=== PATIENT | female | born 2000 | race American Indian/Alaskan Native ===

== ENCOUNTER 2020-05-27 15:40 | Outpatient (CLI) | payer MEDICAID ==
[2020-05-27 17:01] VITALS: BP 129/84
[2020-05-27 20:03] LABS: Basophils % (Auto) 0.2 % (0.0-1.8); Eosinophils % (Auto) 0.1 % (0.0-4.3); Hematocrit 39.4 % (30.3-42.9); Lymphocytes # (Auto) 1.9 K/mm3 (1.2-5.4); Mean Corpuscular HGB Conc 33 % (30-34); Mean Corpuscular Volume 83 fl (79-97); Monocytes # (Auto) 0.5 K/mm3 (0.0-0.8); Monocytes % (Auto) 5.5 % (0.0-7.3); Platelet Count 120 K/mm3 (140-440); Red Blood Count 4.73 M/mm3 (3.65-5.03); Red Cell Distribution Width 13.1 % (13.2-15.2)
[2020-05-27 20:18] LABS: Alanine Aminotransferase 15 units/L (7-56); Albumin 3.5 g/dL (3.9-5); Blood Urea Nitrogen 8 mg/dL (7-17); Calcium 9.5 mg/dL (8.4-10.2); Hemolysis Index 0; Uric Acid 4.8 mg/dL (3.5-7.6)
[2020-05-27 20:20] LABS: BUN/Creatinine Ratio 16
[2020-05-27 20:20] LABS: Bacteria,Urine 1+ /HPF (Negative); Bilirubin,Urine NEG (Negative); Blood,Urine NEG (Negative); Color,Urine Yellow (Yellow); Mucus,Urine 1+ /HPF; Protein,Urine <15 mg/dL mg/dL (Negative); Urobilinogen,Urine < 2.0 mg/dL (<2.0)
[2020-05-27 20:23] LABS: Amphetamine Screen,Urine PRESUMPTIVE NEGATIVE; Benzodiazepines Screen,Urine PRESUMPTIVE NEGATIVE; Cannabinoid Screen,Urine PRESUMPTIVE NEGATIVE; Cocaine Screen,Urine PRESUMPTIVE NEGATIVE; Methadone Screen,Urine PRESUMPTIVE NEGATIVE; Opiate Screen,Urine PRESUMPTIVE NEGATIVE
[2020-05-27] MEDS ORDERED: HYDROcodone/ACETAMINOPHEN 10-325MG TAB PO PRN (21:49)
[2020-05-27 21:55] LABS: Creatinine,Urine 209.4 mg/dL (0.1-20.0); Protein/Creatinine Ratio,Urine 0.12
--- NOTE | 2020-05-30 11:29 | Ultrasound Report ---
Limited OB Ultrasound Biophysical profile HISTORY: BPP. TECHNIQUE: Grayscale and color imaging performed. COMPARISON: None FINDINGS: There is a single viable intrauterine gestation with cephalic presentation and heart rate o f 150 bpm. JESI was measured at 8 cm. Placenta is anterior. On biophysical profile, the fetus received a score of 2 out of 2 for breathing, movement, posture/ton e, and JESI. Total score was 8 out of 8. IMPRESSION: 1. Single viable intrauterine gestation as above. 2. Normal biophysical profile. Signer Name: Kasi Turcios MD Signed: 05/27/2020 8:09 PM Workstation Name: [id number]
== END 2020-05-27 21:45 | disposition left against medical advice (07) ==
LOC: EDSTATUS 18:14 → TRG 18:25 → APU 18:26 → TRG 21:45
PROVIDERS: ATTEND Obstetrics & Gynecology
DX: O13.3 Gestational [pregnancy-induced] hypertension without significant proteinuria, third trimester (principal); Z3A.36 36 weeks gestation of pregnancy
CPT/HCPCS: 36415; 59025; 76815; 76819; 80053; 80307; 81001; 82570; 83615; 84156; 84550; 85025

== ENCOUNTER 2020-05-31 15:38 | Inpatient (IN) | payer MEDICAID ==
[2020-05-31] MEDS ORDERED: ACETAMINOPHEN 325 MG TAB PO PRN (16:04)
[2020-05-31] MEDS ORDERED: MINERAL OIL 30 ML ORAL LIQD PO PRN (16:04)
[2020-05-31] MEDS ORDERED: TERBUTALINE 1 MG/1 ML INJ SUB-Q PRN (16:04)
[2020-05-31] MEDS ORDERED: fentaNYL 100 MCG/2 ML INJ IV PRN (16:04)
[2020-05-31] MEDS ORDERED: BUTORPHANOL 2 MG/1 ML INJ IV PRN (16:04)
[2020-05-31] MEDS ORDERED: ONDANSETRON 4 MG/2 ML INJ IV PRN (16:04)
--- NOTE | 2020-05-31 16:34 | History and Physical Report ---
History of Present Illness Date of examination: 05/31/20 Date of admission: 05/31/20 15:38 Chief complaint: Induction of labor secondary to oligohydramnios Past History - Obstetrical History : 1 Medications and Allergies Allergies Allergy/AdvReac Type Severity Reaction Status Date / Time No Known Allergies Allergy Unverified 05/27/20 17:01 Active Meds: Active Medications Acetaminophen (Tylenol) 650 mg PO Q4H PRN PRN Reason: Pain, Mild (1-3) Butorphanol Tartrate (Stadol) 2 mg IV Q2H PRN PRN Reason: Pain , Severe (7-10) Ephedrine Sulfate (Ephedrine Sulfate) 10 mg IV Q2M PRN PRN Reason: Hypotension Fentanyl (Sublimaze) 100 mcg IV Q2H PRN PRN Reason: Pain,Severe (7-10) LABOR PAIN Lactated Ringer's (Lactated Ringers) 1,000 mls @ 125 mls/hr IV DIRECT AMBER Oxytocin/Sodium Chloride (Pitocin/Ns 20 Unit/1000ml Drip) 20 units in 1,000 mls @ 125 mls/hr IV DIRECT AMBER Lidocaine (Xylocaine 2%) 20 ml INFILTRATI ONCE ONE Stop: 05/31/20 16:05 Mineral Oil (Mineral Oil) 30 ml PO QHS PRN PRN Reason: Constipation Ondansetron HCl (Zofran) 4 mg IV Q8H PRN PRN Reason: Nausea And Vomiting Terbutaline Sulfate (Brethine) 0.25 mg SUB-Q ONCE PRN PRN Reason: Hyperstimulation/Hypertonicity - Vital Signs Vital signs: Vital Signs Pulse BP 98 H 136/82 05/31/20 16:09 05/31/20 16:09 Temp Pulse Resp BP Pulse Ox 98 H 136/82 05/31/20 16:09 05/31/20 16:09 Results All other labs normal.
--- NOTE | 2020-05-31 16:49 | History and Physical Report ---
History of Present Illness Date of examination: 05/31/20 Date of admission: 05/31/20 15:38 Chief complaint: Induction of labor secondary to oligohydramnios History of present illness: 19yo, at 37.3 wks, initiated care with [employer] [facility] at 9.6 wks gestation. Her has been complicated by mild preclampsia, gonorrhea (treated on 05/30/2020) and teen . She was sent to [facility] from clinic for induction of labor secondary to oligohydramnios (JESI- 3.8) and mild Pre-E. She reports +FM. Denies VB or LOF. Labs: O+, antibody negative; rubella immune; VDRL non-reactive; HBsAg negative; varicella negative; Chlamydia/Trich negative; MSAFP/Multiple markers negative; 1 hr gtt - 115; GBS negative. 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 denies: smoking, alcohol abuse, prescription drug abuse, IV drug use - Obstetrical History Expected Date of Delivery: 06/18/20 Actual Gestation: 37 Week(s) 3 Day(s) : 1 Para: 0 Hx # Term Pregnancies: 0 Number of Pregnancies: 0 Spontaneous Abortions: 0 Induced : 0 Number of Living Children: 0 Medications and Allergies Allergies Allergy/AdvReac Type Severity Reaction Status Date / Time No Known Allergies Allergy Unverified 05/27/20 17:01 Active Meds: Active Medications Acetaminophen (Tylenol) 650 mg PO Q4H PRN PRN Reason: Pain, Mild (1-3) Butorphanol Tartrate (Stadol) 2 mg IV Q2H PRN PRN Reason: Pain , Severe (7-10) Ephedrine Sulfate (Ephedrine Sulfate) 10 mg IV Q2M PRN PRN Reason: Hypotension Fentanyl (Sublimaze) 100 mcg IV Q2H PRN PRN Reason: Pain,Severe (7-10) LABOR PAIN Lactated Ringer's (Lactated Ringers) 1,000 mls @ 125 mls/hr IV DIRECT AMBER Oxytocin/Sodium Chloride (Pitocin/Ns 20 Unit/1000ml Drip) 20 units in 1,000 mls @ 125 mls/hr IV DIRECT AMBER Lidocaine (Xylocaine 2%) 20 ml INFILTRATI ONCE ONE Stop: 05/31/20 17:05 Mineral Oil (Mineral Oil) 30 ml PO QHS PRN PRN Reason: Constipation Ondansetron HCl (Zofran) 4 mg IV Q8H PRN PRN Reason: Nausea And Vomiting Terbutaline Sulfate (Brethine) 0.25 mg SUB-Q ONCE PRN PRN Reason: Hyperstimulation/Hypertonicity Review of Systems All systems: negative - Vital Signs Vital signs: Vital Signs Pulse BP 98 H 136/82 05/31/20 16:09 05/31/20 16:09 Temp Pulse Resp BP Pulse Ox 98.8 F 101 H 16 136/82 99 05/31/20 16:10 05/31/20 16:36 05/31/20 16:10 05/31/20 16:10 05/31/20 16:36 - Physical Exam Breasts: Positive: normal Cardiovascular: Regular rate Lungs: Positive: Normal air movement Abdomen: Positive: other (gravid) Genitourinary (Female): Positive: normal external genitalia, normal perenium Uterus: Positive: enlarged (S<D) Extremities: Positive: normal - Obstetrical FHR: category 1 Uterine Contraction Monitor Mode: External Cervical Dilatation: 0.5 (vertex) Cervical Effacement Percentage: 30 station: -3 Uterine Contraction Pattern: Irregular Uterine Tone Measurement Phase: Resting Uterine Contraction Intensity: Mild Results All other labs normal. Assessment and Plan - Patient Problems (1) Oligohydramnios Current Visit: Yes Status: Acute Plan to address problem: Admit to L & D Initiate cervidil x 12 hrs as tolerated Pain meds as ordered as desired Anticipate (2) Pre-eclampsia affecting , antepartum Current Visit: Yes Status: Acute Plan to address problem: Monitor B/Ps Notify provider for SBP>160 or DBP>100 (3) Teen Current Visit: Yes Status: Acute Plan to address problem: Case management consultation PP
[2020-05-31] MEDS ORDERED: OXYTOCIN 20 UNIT/1000ML DRIP 20 UNITS/1,000 ML BAG IV SCH (17:00)
[2020-05-31] MEDS ORDERED: LIDOCAINE (2%) 20 MG/1 ML VIAL 20 ML MDV INFILTRATI ONE (17:04)
[2020-05-31 17:50] LABS: Hematocrit 36.6 % (30.3-42.9); Hemoglobin 12.5 gm/dl (10.1-14.3); Mean Corpuscular HGB Conc 34 % (30-34); Mean Corpuscular Volume 81 fl (79-97); Platelet Count 105 K/mm3 (140-440); Red Blood Count 4.51 M/mm3 (3.65-5.03); Red Cell Distribution Width 13.4 % (13.2-15.2)
[2020-05-31] MEDS ORDERED: DINOPROSTONE 10 MG VAG SUPP VG PRN (18:21)
[2020-06-01] MEDS: OXYTOCIN DRIP 30 UNITS/500 ML BAG IV SCH (09:12)
[2020-06-01] MEDS: LACTATED RINGERS 1,000 ML IV SCH ×2 (09:12→09:28)
[2020-06-01] MEDS ORDERED: AZITHROMYCIN 250 MG TAB PO ONE (10:00)
[2020-06-01] MEDS ORDERED: LIDOCAINE-MPF (1%) 10 MG/1 ML VIAL 5 ML INFILTRATI ONE (11:00)
--- NOTE | 2020-06-01 14:44 | Progress Note ---
Assessment and Plan A: IUP at 37.4 wks Oligo, mild preeclampsia P: Continue monitoring with Pitocin Pain med/Epidural prn Expectant mtg Subjective - Subjective Date of service: 06/01/20 Principal diagnosis: IUP@ TERM Patient reports: movement normal Objective - Vital Signs Vital Signs: Vital Signs - 12hr 06/01/20 06/01/20 06/01/20 02:45 02:50 02:55 Temperature Pulse Rate 86 86 82 Respiratory Rate Blood Pressure O2 Sat by Pulse 99 99 98 Oximetry 06/01/20 06/01/20 06/01/20 03:00 03:05 03:10 Temperature Pulse Rate 91 H 86 84 Respiratory Rate Blood Pressure O2 Sat by Pulse 99 99 98 Oximetry 06/01/20 06/01/20 06/01/20 03:15 03:20 03:25 Temperature Pulse Rate 93 H 80 83 Respiratory Rate Blood Pressure O2 Sat by Pulse 99 99 98 Oximetry 06/01/20 06/01/20 06/01/20 03:30 03:35 03:40 Temperature Pulse Rate 108 H 84 82 Respiratory Rate Blood Pressure O2 Sat by Pulse 100 98 97 Oximetry 06/01/20 06/01/20 06/01/20 03:45 03:50 03:55 Temperature 97.7 F Pulse Rate 86 78 81 Respiratory Rate Blood Pressure O2 Sat by Pulse 97 97 97 Oximetry 06/01/20 06/01/20 06/01/20 04:00 04:05 04:10 Temperature Pulse Rate 80 83 77 Respiratory Rate Blood Pressure O2 Sat by Pulse 98 99 98 Oximetry 06/01/20 06/01/20 06/01/20 04:15 04:20 04:25 Temperature Pulse Rate 79 70 84 Respiratory Rate Blood Pressure O2 Sat by Pulse 97 98 97 Oximetry 06/01/20 06/01/20 06/01/20 04:30 04:35 04:40 Temperature Pulse Rate 74 75 81 Respiratory Rate Blood Pressure O2 Sat by Pulse 98 98 98 Oximetry 06/01/20 06/01/20 06/01/20 04:45 04:50 04:55 Temperature Pulse Rate 75 98 H 70 Respiratory Rate Blood Pressure O2 Sat by Pulse 98 98 98 Oximetry 06/01/20 06/01/20 06/01/20 05:00 05:05 05:10 Temperature Pulse Rate 102 H 85 84 Respiratory Rate Blood Pressure O2 Sat by Pulse 99 98 98 Oximetry 06/01/20 06/01/20 06/01/20 05:15 05:20 05:25 Temperature Pulse Rate 89 91 H 100 H Respiratory Rate Blood Pressure O2 Sat by Pulse 97 100 100 Oximetry 06/01/20 06/01/20 06/01/20 05:30 05:45 05:50 Temperature Pulse Rate 81 90 91 H Respiratory Rate Blood Pressure O2 Sat by Pulse 99 100 99 Oximetry 06/01/20 06/01/20 06/01/20 05:55 06:00 06:05 Temperature Pulse Rate 79 80 77 Respiratory Rate Blood Pressure O2 Sat by Pulse 99 98 99 Oximetry 06/01/20 06/01/20 06/01/20 06:10 06:15 06:20 Temperature Pulse Rate 98 H 72 73 Respiratory Rate Blood Pressure O2 Sat by Pulse 99 99 99 Oximetry 06/01/20 06/01/20 06/01/20 06:25 06:30 06:35 Temperature Pulse Rate 80 79 74 Respiratory Rate Blood Pressure O2 Sat by Pulse 99 99 98 Oximetry 06/01/20 06/01/20 06/01/20 06:40 06:45 06:50 Temperature Pulse Rate 82 71 75 Respiratory Rate Blood Pressure O2 Sat by Pulse 98 98 98 Oximetry 06/01/20 06/01/20 06/01/20 06:55 07:00 07:05 Temperature Pulse Rate 74 78 77 Respiratory Rate Blood Pressure O2 Sat by Pulse 98 98 98 Oximetry 06/01/20 06/01/20 06/01/20 07:10 07:13 07:15 Temperature 98.1 F Pulse Rate 77 75 84 Respiratory 16 Rate Blood Pressure 125/73 O2 Sat by Pulse 98 98 Oximetry 06/01/20 06/01/20 06/01/20 07:20 07:25 07:30 Temperature Pulse Rate 90 78 94 H Respiratory Rate Blood Pressure O2 Sat by Pulse 99 99 100 Oximetry 06/01/20 06/01/20 06/01/20 07:35 07:40 07:41 Temperature Pulse Rate 69 108 H 69 Respiratory Rate Blood Pressure O2 Sat by Pulse 99 100 86 Oximetry 06/01/20 06/01/20 06/01/20 07:46 07:51 07:56 Temperature Pulse Rate 115 H 98 H 96 H Respiratory Rate Blood Pressure O2 Sat by Pulse 84 99 99 Oximetry 0906/01/20 06/01/20 08:01 08:06 08:11 Temperature Pulse Rate 94 H 101 H 84 Respiratory Rate Blood Pressure O2 Sat by Pulse 99 99 99 Oximetry 06/01/20 06/01/20 06/01/20 08:16 08:21 08:26 Temperature Pulse Rate 90 85 77 Respiratory Rate Blood Pressure O2 Sat by Pulse 99 100 100 Oximetry 06/01/20 06/01/20 06/01/20 08:28 08:31 08:36 Temperature Pulse Rate 76 84 81 Respiratory Rate Blood Pressure 128/75 O2 Sat by Pulse 99 100 Oximetry 06/01/20 06/01/20 06/01/20 08:41 08:46 08:51 Temperature Pulse Rate 87 91 H 90 Respiratory Rate Blood Pressure O2 Sat by Pulse 100 99 100 Oximetry 06/01/20 06/01/20 06/01/20 08:59 09:04 09:09 Temperature Pulse Rate 98 H 81 82 Respiratory Rate Blood Pressure O2 Sat by Pulse 95 100 99 Oximetry 06/01/20 06/01/20 06/01/20 09:14 09:19 09:24 Temperature Pulse Rate 84 96 H 93 H Respiratory Rate Blood Pressure 129/82 O2 Sat by Pulse 99 99 99 Oximetry 06/01/20 06/01/20 06/01/20 09:29 09:34 09:39 Temperature Pulse Rate 85 78 90 Respiratory Rate Blood Pressure O2 Sat by Pulse 99 99 98 Oximetry 06/01/20 06/01/20 06/01/20 09:44 09:49 09:54 Temperature Pulse Rate 84 80 86 Respiratory Rate Blood Pressure O2 Sat by Pulse 99 100 100 Oximetry 06/01/20 06/01/20 06/01/20 09:59 10:04 10:09 Temperature Pulse Rate 91 H 80 86 Respiratory Rate Blood Pressure O2 Sat by Pulse 99 99 99 Oximetry 06/01/20 06/01/20 06/01/20 10:14 10:19 10:24 Temperature Pulse Rate 89 93 H 85 Respiratory Rate Blood Pressure 125/58 O2 Sat by Pulse 98 98 97 Oximetry 06/01/20 06/01/20 06/01/20 10:29 10:34 10:39 Temperature Pulse Rate 81 95 H 90 Respiratory Rate Blood Pressure O2 Sat by Pulse 100 100 99 Oximetry 06/01/20 06/01/20 06/01/20 10:48 10:53 10:58 Temperature Pulse Rate 70 80 88 Respiratory Rate Blood Pressure O2 Sat by Pulse 100 99 99 Oximetry 06/01/20 06/01/20 06/01/20 11:03 11:08 11:13 Temperature Pulse Rate 79 93 H 85 Respiratory Rate Blood Pressure O2 Sat by Pulse 100 100 99 Oximetry 06/01/20 06/01/20 06/01/20 11:18 11:23 11:26 Temperature Pulse Rate 101 H 83 75 Respiratory Rate Blood Pressure 151/66 O2 Sat by Pulse 99 100 Oximetry 06/01/20 06/01/20 06/01/20 11:28 11:33 11:38 Temperature Pulse Rate 85 86 85 Respiratory Rate Blood Pressure O2 Sat by Pulse 98 100 99 Oximetry 06/01/20 06/01/20 06/01/20 11:43 11:48 11:53 Temperature Pulse Rate 82 92 H 91 H Respiratory Rate Blood Pressure O2 Sat by Pulse 99 99 99 Oximetry 06/01/20 06/01/20 06/01/20 11:58 12:11 12:16 Temperature Pulse Rate 94 H 105 H 85 Respiratory Rate Blood Pressure O2 Sat by Pulse 99 99 99 Oximetry 06/01/20 06/01/20 06/01/20 12:21 12:24 12:26 Temperature Pulse Rate 79 77 84 Respiratory Rate Blood Pressure 122/76 O2 Sat by Pulse 99 97 Oximetry 06/01/20 06/01/20 06/01/20 12:31 12:36 12:41 Temperature Pulse Rate 87 77 84 Respiratory Rate Blood Pressure O2 Sat by Pulse 97 98 97 Oximetry 06/01/20 06/01/20 06/01/20 12:46 12:51 12:56 Temperature Pulse Rate 85 89 82 Respiratory Rate Blood Pressure O2 Sat by Pulse 97 97 99 Oximetry 06/01/20 06/01/20 06/01/20 13:01 13:06 13:11 Temperature Pulse Rate 84 85 92 H Respiratory Rate Blood Pressure O2 Sat by Pulse 99 100 99 Oximetry 06/01/20 06/01/20 06/01/20 13:16 13:21 13:24 Temperature Pulse Rate 89 82 81 Respiratory Rate Blood Pressure 119/64 O2 Sat by Pulse 100 99 Oximetry 06/01/20 06/01/20 06/01/20 13:26 13:31 13:36 Temperature Pulse Rate 90 89 90 Respiratory Rate Blood Pressure O2 Sat by Pulse 100 98 98 Oximetry 06/01/20 06/01/20 06/01/20 13:41 13:46 13:51 Temperature Pulse Rate 88 94 H 96 H Respiratory Rate Blood Pressure O2 Sat by Pulse 99 99 99 Oximetry 06/01/20 06/01/20 06/01/20 13:56 14:01 14:06 Temperature Pulse Rate 87 86 86 Respiratory Rate Blood Pressure O2 Sat by Pulse 99 99 98 Oximetry 06/01/20 06/01/20 06/01/20 14:17 14:22 14:25 Temperature Pulse Rate 88 111 H 94 H Respiratory Rate Blood Pressure 126/78 O2 Sat by Pulse 98 99 Oximetry 06/01/20 06/01/20 06/01/20 14:27 14:32 14:37 Temperature Pulse Rate 92 H 80 84 Respiratory Rate Blood Pressure O2 Sat by Pulse 98 98 98 Oximetry - Exam Breasts: normal Abdomen: Present: normal appearance, soft, normal bowel sounds, other (GRAVID) Vulva: both: normal Uterus: Present: normal, firm FHR: auscultation normal, category 1 Uterine Contraction Monitor Mode: External Uterine Contraction Pattern: Irregular Uterine Tone Measurement Phase: Resting Uterine Contraction Intensity: Mild Extremities: normal - Labs Labs: Abnormal Labs 05/31/20 16:36 Plt Count 105 L Laboratory Results - last 24 hr 05/31/20 05/31/20 16:36 16:36 WBC 10.0 RBC 4.51 Hgb 12.5 Hct 36.6 MCV 81 MCH 28 MCHC 34 RDW 13.4 Plt Count 105 L Blood Type O POSITIVE Antibody Screen Negative
[2020-06-01] MEDS ORDERED: DINOPROSTONE 10 MG VAG SUPP VG ONE (19:37)
--- NOTE | 2020-06-01 19:39 | Event Note ---
Date: 06/01/20 Despite pitocin today, no cervical change. Still 1 cm/40%high. As a result, pit stopped, and will ripen again with cervidil overnight. NST reactive. Good BP control.
--- NOTE | 2020-06-02 09:32 | Progress Note ---
Assessment and Plan A: IUP@ 37+ wks Oligo Mild preeclampsia P: Continuing monitoring Start Pitocin Anticipate Subjective - Subjective Date of service: 06/02/20 Principal diagnosis: IUP@ TERM Patient reports: movement normal Objective - Vital Signs Vital Signs: Vital Signs - 12hr 06/02/20 08:41 Temperature 98.5 F Pulse Rate 81 Respiratory 18 Rate Blood Pressure 141/82 Blood Pressure 141/82 [Right] - Exam Breasts: normal Abdomen: Present: normal appearance, soft, normal bowel sounds, other (gravid) Vulva: both: normal Uterus: Present: normal, firm, other (gravid) FHR: auscultation normal, category 1 Uterine Contraction Monitor Mode: External Cervical Dilatation: 2 Cervical Effacement Percentage: 50 station: -3 Uterine Contraction Pattern: Irregular Uterine Tone Measurement Phase: Resting Uterine Contraction Intensity: Mild Extremities: normal - Labs Labs: Abnormal Labs 05/31/20 16:36 Plt Count 105 L Laboratory Results - last 24 hr 06/01/20 Unknown Coronavirus (PCR) Negative
[2020-06-02] MEDS: OXYTOCIN DRIP 30 UNITS/500 ML BAG IV SCH ×9 (10:03→16:45)
[2020-06-02] MEDS: LACTATED RINGERS 1,000 ML IV SCH ×2 (12:25→21:10)
[2020-06-02 23:29] LABS: Alanine Aminotransferase 12 units/L (7-56); Blood Urea Nitrogen 5 mg/dL (7-17); Calcium 8.8 mg/dL (8.4-10.2); Hemolysis Index 14
[2020-06-02 23:40] LABS: BUN/Creatinine Ratio 8
[2020-06-03] MEDS ORDERED: miSOPROStol 25 MCG TAB PO SCH (06:30)
[2020-06-03] MEDS: OXYTOCIN DRIP 30 UNITS/500 ML BAG IV SCH ×4 (10:08→13:41)
--- NOTE | 2020-06-03 10:26 | Progress Note ---
Assessment and Plan - Patient Problems (1) Oligohydramnios Current Visit: Yes Status: Acute Plan to address problem: Discontinue cytotec Kong balloon placed without difficulty at [id number] Initiate low dose Pitocin as tolerated Pain meds as desired per order Anticipate (2) Pre-eclampsia affecting , antepartum Current Visit: Yes Status: Acute Plan to address problem: Monitor B/Ps Notify provider for SBP>160 or DBP>100 (3) Teen Current Visit: Yes Status: Acute Plan to address problem: Case management consultation PP Subjective - Subjective Date of service: 06/03/20 Principal diagnosis: IOL secondary to oligo Interval history: 19yo, at 37.3 wks, initiated care with [facility] [employer] [facility] at 9.6 wks gestation. Her has been complicated by mild preclampsia, gonorrhea (treated on 05/30/2020) and teen . She was sent to [facility] from clinic for induction of labor secondary to oligohydramnios (JESI- 3.8) and mild Pre-E. She reports +FM. Denies VB or LOF. Labs: O+, antibody negative; rubella immune; VDRL non-reactive; HBsAg negative; varicella negative; Chlamydia/Trich negative; MSAFP/Multiple markers negative; 1 hr gtt - 115; GBS negative. Patient reports: movement normal, contractions (irregular), no new complaints, no loss of fluid, no vaginal bleeding Objective - Vital Signs Vital Signs: Vital Signs - 12hr 06/02/20 06/02/20 06/02/20 23:13 23:18 23:23 Temperature Pulse Rate 76 75 76 Respiratory Rate Blood Pressure O2 Sat by Pulse 97 98 98 Oximetry 06/02/20 06/02/20 06/02/20 23:28 23:33 23:38 Temperature Pulse Rate 73 73 73 Respiratory Rate Blood Pressure O2 Sat by Pulse 98 99 99 Oximetry 06/02/20 06/02/20 06/02/20 23:43 23:48 23:53 Temperature Pulse Rate 75 73 72 Respiratory Rate Blood Pressure O2 Sat by Pulse 98 99 99 Oximetry 06/02/20 06/03/20 06/03/20 23:58 00:03 00:04 Temperature Pulse Rate 76 70 75 Respiratory Rate Blood Pressure 118/68 O2 Sat by Pulse 98 98 Oximetry 06/03/20 06/03/20 06/03/20 00:08 00:13 00:18 Temperature 98 F Pulse Rate 73 69 68 Respiratory 18 Rate Blood Pressure O2 Sat by Pulse 98 98 98 Oximetry 06/03/20 06/03/20 06/03/20 00:23 00:28 00:33 Temperature Pulse Rate 69 70 67 Respiratory Rate Blood Pressure O2 Sat by Pulse 98 98 98 Oximetry 06/03/20 06/03/20 06/03/20 00:38 00:43 00:48 Temperature Pulse Rate 66 70 69 Respiratory Rate Blood Pressure O2 Sat by Pulse 99 98 98 Oximetry 06/03/20 06/03/20 06/03/20 00:53 00:58 01:03 Temperature Pulse Rate 65 70 72 Respiratory Rate Blood Pressure O2 Sat by Pulse 99 98 98 Oximetry 06/03/20 06/03/20 06/03/20 01:04 01:08 01:13 Temperature Pulse Rate 69 71 75 Respiratory Rate Blood Pressure 120/60 O2 Sat by Pulse 98 97 Oximetry 06/03/20 06/03/20 06/03/20 01:18 01:23 01:28 Temperature Pulse Rate 84 78 98 H Respiratory Rate Blood Pressure O2 Sat by Pulse 99 99 99 Oximetry 06/03/20 06/03/20 06/03/20 01:33 01:38 01:43 Temperature Pulse Rate 64 69 68 Respiratory Rate Blood Pressure O2 Sat by Pulse 98 99 100 Oximetry 06/03/20 06/03/20 06/03/20 01:48 01:53 01:58 Temperature Pulse Rate 66 67 69 Respiratory Rate Blood Pressure O2 Sat by Pulse 100 100 100 Oximetry 06/03/20 06/03/20 06/03/20 02:03 02:05 02:08 Temperature Pulse Rate 85 59 L 61 Respiratory Rate Blood Pressure 133/79 O2 Sat by Pulse 100 100 Oximetry 06/03/20 06/03/20 06/03/20 02:13 02:18 02:23 Temperature Pulse Rate 61 64 65 Respiratory Rate Blood Pressure O2 Sat by Pulse 99 99 98 Oximetry 06/03/20 06/03/20 06/03/20 02:28 02:33 02:38 Temperature Pulse Rate 63 61 63 Respiratory Rate Blood Pressure O2 Sat by Pulse 99 100 100 Oximetry 06/03/20 06/03/20 06/03/20 02:43 02:48 02:53 Temperature Pulse Rate 63 66 63 Respiratory Rate Blood Pressure O2 Sat by Pulse 100 99 99 Oximetry 06/03/20 06/03/20 06/03/20 02:58 03:03 03:04 Temperature Pulse Rate 77 68 64 Respiratory Rate Blood Pressure 124/66 O2 Sat by Pulse 99 99 Oximetry 06/03/20 06/03/20 06/03/20 03:08 03:13 03:18 Temperature Pulse Rate 84 84 67 Respiratory Rate Blood Pressure O2 Sat by Pulse 98 100 100 Oximetry 06/03/20 06/03/20 06/03/20 03:23 03:28 03:33 Temperature Pulse Rate 67 68 85 Respiratory Rate Blood Pressure O2 Sat by Pulse 100 100 99 Oximetry 06/03/20 06/03/20 06/03/20 03:38 03:43 03:48 Temperature Pulse Rate 66 65 67 Respiratory Rate Blood Pressure O2 Sat by Pulse 100 99 100 Oximetry 06/03/20 06/03/20 06/03/20 03:53 03:58 04:00 Temperature 97.8 F Pulse Rate 66 63 Respiratory Rate Blood Pressure O2 Sat by Pulse 99 99 Oximetry 06/03/20 06/03/20 06/03/20 04:31 04:36 04:41 Temperature Pulse Rate 74 64 67 Respiratory Rate Blood Pressure O2 Sat by Pulse 100 99 100 Oximetry 06/03/20 06/03/20 06/03/20 04:46 04:51 04:56 Temperature Pulse Rate 66 62 64 Respiratory Rate Blood Pressure O2 Sat by Pulse 99 99 99 Oximetry 06/03/20 06/03/20 06/03/20 05:01 05:04 05:06 Temperature Pulse Rate 66 68 72 Respiratory Rate Blood Pressure 121/59 O2 Sat by Pulse 99 99 Oximetry 06/03/20 06/03/20 06/03/20 05:11 05:16 05:21 Temperature Pulse Rate 66 64 68 Respiratory Rate Blood Pressure O2 Sat by Pulse 100 100 99 Oximetry 06/03/20 06/03/20 06/03/20 05:26 05:31 05:36 Temperature Pulse Rate 66 65 67 Respiratory Rate Blood Pressure O2 Sat by Pulse 99 100 100 Oximetry 06/03/20 06/03/20 06/03/20 05:41 05:46 05:51 Temperature Pulse Rate 63 67 74 Respiratory Rate Blood Pressure O2 Sat by Pulse 100 100 99 Oximetry 06/03/20 06/03/2020 05:56 06:01 06:05 Temperature Pulse Rate 70 82 82 Respiratory Rate Blood Pressure 163/87 O2 Sat by Pulse 100 100 Oximetry 06/03/20 06/03/20 06/03/20 06:06 06:11 06:16 Temperature Pulse Rate 97 H 66 83 Respiratory Rate Blood Pressure O2 Sat by Pulse 100 100 100 Oximetry 06/03/20 06/03/20 06/03/20 06:21 06:26 06:31 Temperature Pulse Rate 72 67 69 Respiratory Rate Blood Pressure O2 Sat by Pulse 100 100 99 Oximetry 06/03/20 06/03/20 06/03/20 06:36 06:41 06:46 Temperature Pulse Rate 62 65 67 Respiratory Rate Blood Pressure O2 Sat by Pulse 100 99 99 Oximetry 06/03/20 06/03/20 06/03/20 06:51 06:56 07:01 Temperature Pulse Rate 64 66 64 Respiratory Rate Blood Pressure O2 Sat by Pulse 99 99 100 Oximetry 06/03/20 06/03/20 06/03/20 07:06 07:11 07:16 Temperature Pulse Rate 86 67 65 Respiratory Rate Blood Pressure 133/74 O2 Sat by Pulse 100 100 100 Oximetry 06/03/20 06/03/20 06/03/20 07:21 07:26 07:31 Temperature Pulse Rate 74 78 75 Respiratory Rate Blood Pressure O2 Sat by Pulse 100 100 100 Oximetry 06/03/20 06/03/20 06/03/20 07:36 07:41 07:46 Temperature Pulse Rate 66 67 74 Respiratory Rate Blood Pressure O2 Sat by Pulse 100 100 100 Oximetry 06/03/20 06/03/20 06/03/20 07:51 07:56 08:01 Temperature Pulse Rate 68 78 69 Respiratory Rate Blood Pressure O2 Sat by Pulse 100 100 100 Oximetry 06/03/20 06/03/20 06/03/20 08:04 08:06 08:11 Temperature Pulse Rate 71 67 68 Respiratory Rate Blood Pressure 122/62 O2 Sat by Pulse 100 100 Oximetry 06/03/20 06/03/20 06/03/20 08:16 08:21 08:26 Temperature Pulse Rate 70 70 68 Respiratory Rate Blood Pressure O2 Sat by Pulse 100 100 100 Oximetry 06/03/20 06/03/20 06/03/20 08:31 08:36 08:41 Temperature Pulse Rate 74 81 76 Respiratory Rate Blood Pressure O2 Sat by Pulse 100 100 100 Oximetry 06/03/20 06/03/20 06/03/20 08:46 08:51 08:56 Temperature Pulse Rate 72 71 94 H Respiratory Rate Blood Pressure O2 Sat by Pulse 100 100 100 Oximetry 06/03/20 06/03/20 06/03/20 09:01 09:06 09:22 Temperature Pulse Rate 85 74 86 Respiratory Rate Blood Pressure 113/61 O2 Sat by Pulse 98 100 100 Oximetry 06/03/20 06/03/20 06/03/20 09:27 09:32 09:37 Temperature Pulse Rate 82 83 80 Respiratory Rate Blood Pressure O2 Sat by Pulse 99 100 99 Oximetry 06/03/20 06/03/20 06/03/20 09:39 09:42 09:47 Temperature Pulse Rate 93 H 85 86 Respiratory Rate Blood Pressure 130/83 O2 Sat by Pulse 99 100 Oximetry 06/03/20 06/03/20 06/03/20 09:52 09:57 10:02 Temperature Pulse Rate 94 H 99 H 101 H Respiratory Rate Blood Pressure O2 Sat by Pulse 98 99 99 Oximetry 06/03/20 06/03/20 06/03/20 10:03 10:04 10:07 Temperature Pulse Rate 98 H 98 H 82 Respiratory Rate Blood Pressure 129/85 132/90 O2 Sat by Pulse 99 Oximetry 06/03/20 10:12 Temperature Pulse Rate 97 H Respiratory Rate Blood Pressure O2 Sat by Pulse 99 Oximetry - Exam Breasts: deferred Cardiovascular: Regular rate Lungs: Normal air movement Abdomen: Present: other (gravid) Uterus: Present: other (enlarged, S=D) FHR: category 1 Uterine Contraction Monitor Mode: External Cervical Dilatation: 1.5 (vertex) Cervical Effacement Percentage: 40 station: -3 Uterine Contraction Frequency (min): 5-6 Uterine Contraction Pattern: Irregular Uterine Tone Measurement Phase: Resting Extremities: normal Deep Tendon Reflex Grade: Normal +2 - Labs Labs: Abnormal Labs 05/31/20 06/02/20 16:36 22:52 Plt Count 105 L BUN 5 L Alkaline Phosphatase 156 H Total Protein 6.0 L Albumin 3.0 L Laboratory Results - last 24 hr 06/02/20 06/02/20 22:52 22:52 Sodium 138 Potassium 3.8 Chloride 103.9 Carbon Dioxide 22 Anion Gap 16 BUN 5 L Creatinine 0.6 Estimated GFR > 60 BUN/Creatinine Ratio 8 Glucose 73 Uric Acid 5.7 Calcium 8.8 Total Bilirubin 0.20 AST 15 ALT 12 Alkaline Phosphatase 156 H Total Protein 6.0 L Albumin 3.0 L Albumin/Globulin Ratio 1.0
[2020-06-03 10:48] LABS: Basophils % (Auto) 0.3 % (0.0-1.8); Eosinophils % (Auto) 0.4 % (0.0-4.3); Hematocrit 37.4 % (30.3-42.9); Hemoglobin 12.4 gm/dl (10.1-14.3); Lymphocytes # (Auto) 2.7 K/mm3 (1.2-5.4); Lymphocytes % (Auto) 34.2 % (13.4-35.0); Mean Corpuscular HGB Conc 33 % (30-34); Mean Corpuscular Volume 82 fl (79-97); Monocytes # (Auto) 0.4 K/mm3 (0.0-0.8); Monocytes % (Auto) 5.2 % (0.0-7.3); Platelet Count 102 K/mm3 (140-440); Red Blood Count 4.54 M/mm3 (3.65-5.03); Red Cell Distribution Width 13.1 % (13.2-15.2)
[2020-06-03] MEDS: LACTATED RINGERS 1,000 ML IV SCH (13:27)
--- NOTE | 2020-06-03 21:31 | Event Note ---
Date: 06/03/20 Assumed care of patient at 5:[address] Bustamante re: this patient. Per MD recommendation, removed Cook's balloon and stopped Pitocin. Ordered US for JESI, BPP. Repeat labs. Category 1 heart rate tracing. Irregular mild contractions.
--- NOTE | 2020-06-03 23:39 | Ultrasound Report ---
ULTRASOUND OBSTETRIC LIMITED ULTRASOUND BIOPHYSICAL PROFILE INDICATION / CLINICAL INFORMATION: BPP. Clinical Gestational Age (GA): 37.6 weeks.days COMPARISON: None available. FINDINGS: BREATHING MOVEMENT = 2 GROSS BODY MOVEMENT = 2 TONE = 2 QUALITATIVE AMNIOTIC FLUID VOLUME = 2 TOTAL BIOPHYSICAL SCORE = 8/8 HEART RATE (beats per minute): 141 AMNIOTIC FLUID INDEX (cm) = 10.3 (normal = 7-24 cm) ADDITIONAL FINDINGS: None. IMPRESSION: 1. Biophysical Score = 8/8 2. Amniotic fluid index measures 10.3 cm. Signer Name: Osvaldo Butcher MD Signed: 06/03/2020 11:34 PM Workstation Name: [employer]
[2020-06-04 00:46] LABS: Bacteria,Urine 1+ /HPF (Negative); Bilirubin,Urine NEG (Negative); Blood,Urine LG (Negative); Color,Urine Yellow (Yellow); Mucus,Urine FEW /HPF; Protein,Urine <15 mg/dL mg/dL (Negative)
[2020-06-04 03:19] LABS: Uric Acid 5.8 mg/dL (3.5-7.6)
--- NOTE | 2020-06-04 08:31 | Progress Note ---
Assessment and Plan A: at 38 weeks gestation. PIH. GBS negative. P: Pitocin augmentation of labor. Continuous EFM. Anticipate vaginal . Consulted with Dr. Bustamante re: this patient. Subjective - Subjective Date of service: 06/04/20 Principal diagnosis: at 38 weeks, PIH Interval history: Patietnt reports mild contractions overnight that are irregular. Patient denies LOF or VB. Patient reports: movement normal, contractions (irregular), no new complaints, no loss of fluid, no vaginal bleeding Objective - Vital Signs Vital Signs: Vital Signs - 12hr 06/03/20 06/03/20 06/03/20 20:31 20:36 20:41 Temperature Pulse Rate 91 H 82 97 H Respiratory Rate Blood Pressure Blood Pressure [Right] O2 Sat by Pulse 99 99 100 Oximetry 06/03/20 06/03/20 06/03/20 20:46 20:51 20:56 Temperature Pulse Rate 87 90 94 H Respiratory Rate Blood Pressure Blood Pressure [Right] O2 Sat by Pulse 100 100 100 Oximetry 06/03/20 06/03/20 06/03/20 20:59 21:01 21:04 Temperature Pulse Rate 66 136 H Respiratory Rate Blood Pressure Blood Pressure [Right] O2 Sat by Pulse 84 83 L 88 Oximetry 06/03/20 06/03/20 06/03/20 21:07 21:09 21:15 Temperature Pulse Rate 68 Respiratory Rate Blood Pressure Blood Pressure [Right] O2 Sat by Pulse 78 L 80 L 92 Oximetry 06/03/20 06/03/20 06/03/20 21:21 21:26 21:27 Temperature Pulse Rate 56 L 43 L Respiratory Rate Blood Pressure Blood Pressure [Right] O2 Sat by Pulse 77 L 76 L 71 L Oximetry 06/03/20 06/03/20 06/03/20 21:32 21:39 21:40 Temperature Pulse Rate 53 L Respiratory Rate Blood Pressure Blood Pressure [Right] O2 Sat by Pulse 78 L 86 76 L Oximetry 06/03/20 06/03/20 06/03/20 21:44 21:45 21:50 Temperature Pulse Rate 159 H 48 L Respiratory Rate Blood Pressure Blood Pressure [Right] O2 Sat by Pulse 76 L 76 L 75 L Oximetry 06/03/20 06/03/20 06/03/20 21:55 22:00 22:05 Temperature Pulse Rate 88 88 76 Respiratory Rate Blood Pressure 140/98 Blood Pressure [Right] O2 Sat by Pulse 99 99 99 Oximetry 06/03/20 06/03/20 06/03/20 22:10 22:15 22:20 Temperature Pulse Rate 80 76 75 Respiratory Rate Blood Pressure Blood Pressure [Right] O2 Sat by Pulse 99 100 99 Oximetry 06/03/20 06/03/20 06/03/20 22:25 22:30 22:35 Temperature Pulse Rate 89 81 90 Respiratory Rate Blood Pressure Blood Pressure [Right] O2 Sat by Pulse 98 99 97 Oximetry 06/03/20 06/03/20 06/03/20 22:40 22:45 22:50 Temperature Pulse Rate 85 76 76 Respiratory Rate Blood Pressure Blood Pressure [Right] O2 Sat by Pulse 98 99 99 Oximetry 06/03/20 06/03/20 06/03/20 22:55 23:00 23:04 Temperature Pulse Rate 91 H 99 H 88 Respiratory Rate Blood Pressure 139/87 Blood Pressure [Right] O2 Sat by Pulse 99 99 Oximetry 06/03/20 06/03/20 06/03/20 23:05 23:10 23:15 Temperature Pulse Rate 80 89 88 Respiratory Rate Blood Pressure Blood Pressure [Right] O2 Sat by Pulse 100 99 99 Oximetry 06/03/20 06/03/20 06/03/20 23:20 23:25 23:30 Temperature Pulse Rate 71 85 79 Respiratory Rate Blood Pressure Blood Pressure [Right] O2 Sat by Pulse 100 99 99 Oximetry 06/03/20 06/03/20 06/03/20 23:35 23:40 23:45 Temperature Pulse Rate 77 87 82 Respiratory Rate Blood Pressure Blood Pressure [Right] O2 Sat by Pulse 100 99 98 Oximetry 06/03/20 06/03/20 06/04/20 23:50 23:55 00:00 Temperature Pulse Rate 95 H 90 80 Respiratory Rate Blood Pressure Blood Pressure [Right] O2 Sat by Pulse 99 99 98 Oximetry 06/04/20 06/04/20 06/04/20 00:04 00:12 00:25 Temperature 98 F Pulse Rate 79 75 Respiratory 19 Rate Blood Pressure 143/72 Blood Pressure [Right] O2 Sat by Pulse 99 Oximetry 06/04/20 06/04/20 06/04/20 00:30 00:35 00:40 Temperature Pulse Rate 71 74 78 Respiratory Rate Blood Pressure Blood Pressure [Right] O2 Sat by Pulse 99 99 99 Oximetry 06/04/20 06/04/20 06/04/20 00:45 00:50 00:55 Temperature Pulse Rate 82 81 75 Respiratory Rate Blood Pressure Blood Pressure [Right] O2 Sat by Pulse 99 98 98 Oximetry 06/04/20 06/04/20 06/04/20 01:00 01:04 01:05 Temperature Pulse Rate 74 73 76 Respiratory Rate Blood Pressure 144/64 Blood Pressure [Right] O2 Sat by Pulse 98 97 Oximetry 06/04/20 06/04/20 06/04/20 01:10 01:15 01:20 Temperature Pulse Rate 76 75 77 Respiratory Rate Blood Pressure Blood Pressure [Right] O2 Sat by Pulse 97 98 97 Oximetry 06/04/20 06/04/20 06/04/20 01:25 01:30 01:35 Temperature Pulse Rate 80 80 82 Respiratory Rate Blood Pressure Blood Pressure [Right] O2 Sat by Pulse 97 97 97 Oximetry 06/04/20 06/04/20 06/04/20 01:40 01:45 01:50 Temperature Pulse Rate 107 H 75 72 Respiratory Rate Blood Pressure Blood Pressure [Right] O2 Sat by Pulse 98 97 98 Oximetry 06/04/20 06/04/20 06/04/20 01:55 02:00 02:05 Temperature Pulse Rate 79 81 73 Respiratory Rate Blood Pressure 150/78 Blood Pressure [Right] O2 Sat by Pulse 98 99 98 Oximetry 06/04/20 06/04/20 06/04/20 02:10 02:15 02:21 Temperature Pulse Rate 75 102 H 83 Respiratory Rate Blood Pressure Blood Pressure [Right] O2 Sat by Pulse 98 99 100 Oximetry 06/04/20 06/04/20 06/04/20 02:26 02:31 02:36 Temperature Pulse Rate 81 72 70 Respiratory Rate Blood Pressure Blood Pressure [Right] O2 Sat by Pulse 99 99 98 Oximetry 06/04/20 06/04/20 06/04/20 02:41 02:46 02:51 Temperature Pulse Rate 72 71 71 Respiratory Rate Blood Pressure Blood Pressure [Right] O2 Sat by Pulse 99 98 98 Oximetry 06/04/20 06/04/20 06/04/20 02:56 03:01 03:06 Temperature Pulse Rate 74 75 69 Respiratory Rate Blood Pressure 167/67 Blood Pressure [Right] O2 Sat by Pulse 98 98 98 Oximetry 06/04/20 06/04/20 06/04/20 03:11 03:16 03:21 Temperature Pulse Rate 66 71 72 Respiratory Rate Blood Pressure Blood Pressure [Right] O2 Sat by Pulse 98 98 98 Oximetry 06/04/20 06/04/20 06/04/20 03:26 03:31 03:36 Temperature Pulse Rate 72 69 72 Respiratory Rate Blood Pressure Blood Pressure [Right] O2 Sat by Pulse 98 98 98 Oximetry 06/04/20 06/04/20 06/04/20 03:41 03:46 03:51 Temperature Pulse Rate 73 68 66 Respiratory Rate Blood Pressure Blood Pressure [Right] O2 Sat by Pulse 97 98 98 Oximetry 06/04/20 06/04/20 06/04/20 03:56 04:01 04:04 Temperature Pulse Rate 71 71 107 H Respiratory Rate Blood Pressure 134/68 Blood Pressure [Right] O2 Sat by Pulse 99 99 Oximetry 06/04/20 06/04/20 06/04/20 04:06 04:11 04:16 Temperature Pulse Rate 62 66 62 Respiratory Rate Blood Pressure Blood Pressure [Right] O2 Sat by Pulse 99 99 99 Oximetry 06/04/20 06/04/20 06/04/20 04:21 04:26 04:31 Temperature Pulse Rate 73 65 67 Respiratory Rate Blood Pressure Blood Pressure [Right] O2 Sat by Pulse 99 99 98 Oximetry 06/04/20 06/04/20 06/04/20 04:32 04:36 04:41 Temperature 98.1 F Pulse Rate 66 86 Respiratory 16 Rate Blood Pressure Blood Pressure [Right] O2 Sat by Pulse 98 99 Oximetry 06/04/20 06/04/20 06/04/20 04:46 04:51 04:56 Temperature Pulse Rate 62 64 65 Respiratory Rate Blood Pressure Blood Pressure [Right] O2 Sat by Pulse 97 99 99 Oximetry 06/04/20 06/04/20 06/04/20 05:01 05:05 05:06 Temperature Pulse Rate 65 75 91 H Respiratory Rate Blood Pressure 141/77 Blood Pressure [Right] O2 Sat by Pulse 99 98 Oximetry 06/04/20 06/04/20 06/04/20 05:18 05:23 05:28 Temperature Pulse Rate 85 78 74 Respiratory Rate Blood Pressure Blood Pressure [Right] O2 Sat by Pulse 100 100 99 Oximetry 06/04/20 06/04/20 06/04/20 05:33 05:38 05:43 Temperature Pulse Rate 72 75 70 Respiratory Rate Blood Pressure Blood Pressure [Right] O2 Sat by Pulse 100 99 99 Oximetry 06/04/20 06/04/20 06/04/20 05:48 05:53 05:58 Temperature Pulse Rate 65 67 72 Respiratory Rate Blood Pressure Blood Pressure [Right] O2 Sat by Pulse 98 98 98 Oximetry 06/04/20 06/04/20 06/04/20 06:03 06:04 06:08 Temperature Pulse Rate 67 67 65 Respiratory Rate Blood Pressure 117/52 Blood Pressure [Right] O2 Sat by Pulse 98 99 Oximetry 06/04/20 06/04/20 06/04/20 06:13 06:18 06:23 Temperature Pulse Rate 64 64 66 Respiratory Rate Blood Pressure Blood Pressure [Right] O2 Sat by Pulse 99 99 98 Oximetry 06/04/20 06/04/20 06/04/20 06:28 06:33 06:38 Temperature Pulse Rate 71 68 66 Respiratory Rate Blood Pressure Blood Pressure [Right] O2 Sat by Pulse 98 99 98 Oximetry 06/04/20 06/04/20 06/04/20 06:43 06:48 06:53 Temperature Pulse Rate 72 72 87 Respiratory Rate Blood Pressure Blood Pressure [Right] O2 Sat by Pulse 99 100 100 Oximetry 06/04/20 06/04/20 06/04/20 06:58 07:03 07:05 Temperature Pulse Rate 70 65 65 Respiratory Rate Blood Pressure 148/104 Blood Pressure [Right] O2 Sat by Pulse 100 100 Oximetry 06/04/20 06/04/20 06/04/20 07:08 07:13 07:18 Temperature Pulse Rate 69 64 70 Respiratory Rate Blood Pressure Blood Pressure [Right] O2 Sat by Pulse 99 100 99 Oximetry 06/04/20 06/04/20 06/04/20 07:23 07:28 07:33 Temperature Pulse Rate 68 68 85 Respiratory Rate Blood Pressure Blood Pressure [Right] O2 Sat by Pulse 99 98 99 Oximetry 06/04/20 06/04/20 06/04/20 07:38 07:43 07:48 Temperature Pulse Rate 64 70 69 Respiratory Rate Blood Pressure Blood Pressure [Right] O2 Sat by Pulse 99 98 99 Oximetry 06/04/20 06/04/20 06/04/20 07:53 07:58 08:03 Temperature Pulse Rate 68 68 81 Respiratory Rate Blood Pressure Blood Pressure [Right] O2 Sat by Pulse 98 99 99 Oximetry 06/04/20 06/04/20 06/04/20 08:05 08:08 08:13 Temperature Pulse Rate 67 64 68 Respiratory Rate Blood Pressure 229/118 Blood Pressure [Right] O2 Sat by Pulse 100 100 Oximetry 06/04/20 06/04/20 06/04/20 08:18 08:22 08:23 Temperature 98.0 F Pulse Rate 89 86 83 Respiratory 18 Rate Blood Pressure 133/75 Blood Pressure 133/75 [Right] O2 Sat by Pulse 100 100 Oximetry - Exam Abdomen: Present: normal appearance, soft. Absent: distention, tenderness, guarding, rigidity Uterus: Present: normal, fundal height above umbilicus. Absent: tenderness FHR: category 1 Uterine Contraction Monitor Mode: External Cervical Dilatation: 4.5 Cervical Effacement Percentage: 50 (BBOW) station: -3 Uterine Contraction Pattern: Irregular Uterine Contraction Intensity: Mild Extremities: edema - Labs Labs: Abnormal Labs 05/31/20 06/02/20 06/03/20 16:36 22:52 10:34 MCH 27 L RDW 13.1 L Plt Count 105 L 102 L BUN 5 L Alkaline Phosphatase 156 H Total Protein 6.0 L Albumin 3.0 L Urine WBC (Auto) 06/03/20 06/04/20 21:27 00:20 MCH RDW Plt Count 113 L BUN Alkaline Phosphatase Total Protein Albumin Urine WBC (Auto) 45.0 H Laboratory Results - last 24 hr 06/03/20 06/03/20 06/03/20 10:34 21:27 21:27 WBC 7.9 RBC 4.54 Hgb 12.4 Hct 37.4 MCV 82 MCH 27 L MCHC 33 RDW 13.1 L Plt Count 102 L 113 L Lymph % (Auto) 34.2 [place] % (Auto) 5.2 Eos % (Auto) 0.4 Baso % (Auto) 0.3 Lymph # (Auto) 2.7 [place] # (Auto) 0.4 Eos # (Auto) 0.0 Baso # (Auto) 0.0 Seg Neutrophils % 59.9 Seg Neutrophils # 4.7 Uric Acid 5.8 AST 16 ALT 13 Urine Color Urine Turbidity Urine pH Ur Specific [place] Urine Protein Urine Glucose (UA) Urine Ketones Urine Blood Urine Nitrite Urine Bilirubin Urine Urobilinogen Ur Leukocyte Esterase Urine WBC (Auto) Urine RBC (Auto) U Epithel Cells (Auto) Urine Bacteria (Auto) Urine Mucus 06/04/20 00:20 WBC RBC Hgb Hct MCV MCH MCHC RDW Plt Count Lymph % (Auto) [place] % (Auto) Eos % (Auto) Baso % (Auto) Lymph # (Auto) [place] # (Auto) Eos # (Auto) Baso # (Auto) Seg Neutrophils % Seg Neutrophils # Uric Acid AST ALT Urine Color Yellow Urine Turbidity Slightly-cloudy Urine pH 6.0 Ur Specific [place] 1.009 Urine Protein <15 mg/dl Urine Glucose (UA) Neg Urine Ketones Neg Urine Blood Lg Urine Nitrite Neg Urine Bilirubin Neg Urine Urobilinogen 2.0 Ur Leukocyte Esterase Lg Urine WBC (Auto) 45.0 H Urine RBC (Auto) 7.0 U Epithel Cells (Auto) 5.0 Urine Bacteria (Auto) 1+ Urine Mucus Few
--- NOTE | 2020-06-04 08:35 | Event Note ---
Date: 06/04/20 BPs have been stable overnight. The few elevated ones this morning were investigated; cuff was very loose (almost off) on patient's arm and patient was lying on arm with cuff. Repeated and was much lower.
[2020-06-04] MEDS: OXYTOCIN DRIP 30 UNITS/500 ML BAG IV SCH ×2 (09:00→22:05)
[2020-06-04] MEDS ORDERED: MAGNESIUM SULFATE 4 GM/100 ML BAG IV ONE (09:37)
[2020-06-04] MEDS ORDERED: MAGNESIUM SULFATE 40GM/1000ML 40 GM/1,000 ML BAG IV SCH (10:00)
[2020-06-04] MEDS: LACTATED RINGERS 1,000 ML IV SCH ×2 (10:35→19:17)
[2020-06-04] MEDS: MAGNESIUM SULFATE 40GM/1000ML 40 GM/1,000 ML BAG IV SCH (10:55)
--- NOTE | 2020-06-04 14:49 | Event Note ---
Date: 06/04/20 SVE 5.5/60/-2. Pt. is receiving Pitocin for augmentation of labor. She is receiving magnesium sulfate. BPs are stable.
[2020-06-04] MEDS ORDERED: DEXMEDETOMIDINE 200 MCG/2 ML VIAL IV ONE (16:59)
[2020-06-04] MEDS: ePHEDrine SULFATE 50 MG/1 ML INJ IV PRN ×3 (17:34→17:41)
[2020-06-04] MEDS ORDERED: ePHEDrine SULFATE 50 MG/1 ML INJ IV PRN (17:45)
[2020-06-04] MEDS ORDERED: NALOXONE 2 MG/2 ML INJ IV PRN (17:45)
[2020-06-04] MEDS ORDERED: diphenhydrAMINE 50 MG/ML VIAL IV PRN (17:45)
[2020-06-04] MEDS ORDERED: ONDANSETRON 4 MG/2 ML INJ IV PRN (17:45)
[2020-06-04] MEDS ORDERED: NalbUPHINE 10 MG/1 ML INJ IV PRN (17:45)
--- NOTE | 2020-06-04 17:48 | Anesthesia Consultation ---
Anesthesia Consult and Med Hx Date of service: 06/04/20 - Airway Anesthetic Teeth Evaluation: Good ROM Head & Neck: Adequate Mental/Hyoid Distance: Adequate Mallampati Class: Class II Intubation Access Assessment: Possibly Difficult - Pulmonary Exam CTA: Yes - Cardiac Exam Cardiac Exam: RRR - Pre-Operative Health Status ASA Pre-Surgery Classification: ASA2 Proposed Anesthetic Plan: Epidural - Pulmonary Hx Smoking: No Hx Asthma: No COPD: No Hx Pneumonia: No Hx Sleep Apnea: No - Cardiovascular System Hx Hypertension: No - Central Nervous System Hx Seizures: No Hx Psychiatric Problems: No - Gastrointestinal Hx Gastroesophageal Reflux Disease: No - Endocrine Hx Renal Disease: No Hx End Stage Renal Disease: No Hx Hypothyroidism: No Hx Hyperthyroidism: No - Hematic Hx Anemia: No Hx Sickle Cell Disease: No - Other Systems Hx Alcohol Use: No - Additional Comments Anesthesia Medical History Comments: Pt has PIH, labs reviewed and last to plt counts stable/slightly increasing, so after discussing with pt, decision made to go forward with epidural placement. RN advised that a recent plt count should be reviewed and relayed to anesthesia before pulling catheter.
--- NOTE | 2020-06-04 17:51 | Progress Note ---
Labor Epidural - Labor Epidural Start Time: 17:05 Stop Time: 17:19 Performed by:: ANJU LOPEZ Procedure: Patient is requesting a laboring epidural for laboring pain. Patient IDed, H&P reviewed, all questions and concerns were answered, and consent was signed. Timeout was performed at bedside. Patient in sitting position. Sterile prep and drape was performed. 3ml of 1% lidocaine skin wheal at L[3]- L [4]. 18- gauge Touhy epidural needle was advanced to loss of resistance with air technique. Negative CSF negative blood. Epidural catheter advanced to [12] centimeters. [-] Aspiration [-] test dose. Sterile dressing applied. Patient tolerated procedure.
--- NOTE | 2020-06-04 19:27 | Progress Note ---
Subjective - Subjective Date of service: 06/04/20 Principal diagnosis: at 38 weeks, PIH Interval history: FHT 140 baseline, moderate variability Cervix 5cm/90/-3 Direct OP on oxytocin at 8mu/min toco: Q 2 minutes on MGSO4, BPs ~130/80 average Plan for uterine rest for ~2 hrs then restart oxytocin to a max of 10mu/min consider positional changes Maternal/ well being reassuring overall Yousif Bustamante MD Patient reports: movement normal, contractions (irregular), no new complaints, no loss of fluid, no vaginal bleeding Objective - Vital Signs Vital Signs: Vital Signs - 12hr 06/04/20 06/04/20 06/04/20 07:28 07:33 07:38 Temperature Pulse Rate 68 85 64 Respiratory Rate Blood Pressure Blood Pressure [Right] O2 Sat by Pulse 98 99 99 Oximetry 06/04/20 06/04/20 06/04/20 07:43 07:48 07:53 Temperature Pulse Rate 70 69 68 Respiratory Rate Blood Pressure Blood Pressure [Right] O2 Sat by Pulse 98 99 98 Oximetry 06/04/20 06/04/20 06/04/20 07:58 08:03 08:05 Temperature Pulse Rate 68 81 67 Respiratory Rate Blood Pressure 229/118 Blood Pressure [Right] O2 Sat by Pulse 99 99 Oximetry 06/04/20 06/04/20 06/04/20 08:08 08:13 08:18 Temperature Pulse Rate 64 68 89 Respiratory Rate Blood Pressure Blood Pressure [Right] O2 Sat by Pulse 100 100 100 Oximetry 06/04/20 06/04/20 06/04/20 08:22 08:23 08:28 Temperature 98.0 F Pulse Rate 86 83 90 Respiratory 18 Rate Blood Pressure 133/75 Blood Pressure 133/75 [Right] O2 Sat by Pulse 100 100 Oximetry 06/04/20 06/04/20 06/04/20 08:33 08:38 08:43 Temperature Pulse Rate 81 83 92 H Respiratory Rate Blood Pressure Blood Pressure [Right] O2 Sat by Pulse 100 100 100 Oximetry 06/04/20 06/04/20 06/04/20 08:48 08:53 09:00 Temperature Pulse Rate 81 77 94 H Respiratory Rate Blood Pressure Blood Pressure [Right] O2 Sat by Pulse 100 99 100 Oximetry 09/26/20 09/26/20 09/26/20 09:05 09:10 09:15 Temperature Pulse Rate 99 H 105 H 103 H Respiratory Rate Blood Pressure Blood Pressure [Right] O2 Sat by Pulse 100 99 99 Oximetry 06/04/20 06/04/20 06/04/20 09:20 09:25 09:30 Temperature Pulse Rate 100 H 90 99 H Respiratory Rate Blood Pressure Blood Pressure [Right] O2 Sat by Pulse 99 99 99 Oximetry 06/04/20 06/04/20 06/04/20 09:35 09:37 09:40 Temperature Pulse Rate 96 H 100 H 86 Respiratory Rate Blood Pressure 129/71 Blood Pressure [Right] O2 Sat by Pulse 100 98 Oximetry 06/04/20 06/04/20 06/04/20 09:45 09:50 09:55 Temperature Pulse Rate 99 H 99 H 96 H Respiratory Rate Blood Pressure Blood Pressure [Right] O2 Sat by Pulse 99 99 100 Oximetry 06/04/20 06/04/20 06/04/20 10:00 10:02 10:05 Temperature Pulse Rate 83 103 H 99 H Respiratory Rate Blood Pressure 123/70 Blood Pressure [Right] O2 Sat by Pulse 99 98 Oximetry 06/04/20 06/04/20 06/04/20 10:10 10:15 10:20 Temperature Pulse Rate 111 H 83 76 Respiratory Rate Blood Pressure Blood Pressure [Right] O2 Sat by Pulse 98 98 99 Oximetry 06/04/20 06/04/20 06/04/20 10:25 10:30 10:32 Temperature Pulse Rate 109 H 104 H 88 Respiratory Rate Blood Pressure 122/84 Blood Pressure [Right] O2 Sat by Pulse 98 99 Oximetry 06/04/20 06/04/20 06/04/20 10:35 10:40 10:45 Temperature Pulse Rate 106 H 108 H 97 H Respiratory Rate Blood Pressure Blood Pressure [Right] O2 Sat by Pulse 98 99 99 Oximetry 06/04/20 06/04/20 06/04/20 10:50 10:55 11:00 Temperature Pulse Rate 98 H 91 H 95 H Respiratory Rate Blood Pressure Blood Pressure [Right] O2 Sat by Pulse 99 98 100 Oximetry 06/04/20 06/04/20 06/04/20 11:02 11:05 11:10 Temperature Pulse Rate 95 H 87 96 H Respiratory Rate Blood Pressure 129/69 Blood Pressure [Right] O2 Sat by Pulse 100 99 Oximetry 06/04/20 06/04/2006/04/20 11:15 11:20 11:25 Temperature Pulse Rate 92 H 89 78 Respiratory Rate Blood Pressure Blood Pressure [Right] O2 Sat by Pulse 99 100 100 Oximetry 06/04/20 06/04/20 06/04/20 11:30 11:32 11:33 Temperature Pulse Rate 90 86 85 Respiratory Rate Blood Pressure 131/81 132/80 Blood Pressure [Right] O2 Sat by Pulse 99 Oximetry 06/04/20 06/04/20 06/04/20 11:35 11:40 11:45 Temperature Pulse Rate 87 85 88 Respiratory Rate Blood Pressure Blood Pressure [Right] O2 Sat by Pulse 99 100 100 Oximetry 06/04/20 06/04/20 06/04/20 11:50 11:55 12:00 Temperature Pulse Rate 87 90 95 H Respiratory Rate Blood Pressure Blood Pressure [Right] O2 Sat by Pulse 99 99 100 Oximetry 06/04/20 06/04/20 06/04/20 12:02 12:05 12:10 Temperature Pulse Rate 77 84 85 Respiratory Rate Blood Pressure 126/78 Blood Pressure [Right] O2 Sat by Pulse 99 99 Oximetry 06/04/20 06/04/20 06/04/20 12:15 12:20 12:25 Temperature Pulse Rate 85 86 79 Respiratory Rate Blood Pressure Blood Pressure [Right] O2 Sat by Pulse 100 100 100 Oximetry 06/04/20 06/04/20 06/04/20 12:30 12:32 12:35 Temperature Pulse Rate 80 77 86 Respiratory Rate Blood Pressure 131/82 Blood Pressure [Right] O2 Sat by Pulse 100 100 Oximetry 06/04/20 06/04/20 06/04/20 12:40 12:45 12:50 Temperature Pulse Rate 92 H 81 86 Respiratory Rate Blood Pressure Blood Pressure [Right] O2 Sat by Pulse 100 100 99 Oximetry 06/04/20 06/04/20 06/04/20 12:55 13:00 13:02 Temperature Pulse Rate 87 83 82 Respiratory Rate Blood Pressure 133/86 Blood Pressure [Right] O2 Sat by Pulse 100 100 Oximetry 06/04/20 06/04/20 06/04/20 13:05 13:10 13:15 Temperature Pulse Rate 83 80 94 H Respiratory Rate Blood Pressure Blood Pressure [Right] O2 Sat by Pulse 100 100 100 Oximetry 06/04/20 06/04/20 06/04/20 13:20 13:25 13:30 Temperature Pulse Rate 82 87 80 Respiratory Rate Blood Pressure Blood Pressure [Right] O2 Sat by Pulse 99 100 100 Oximetry 06/04/20 06/04/20 06/04/20 13:32 13:35 13:40 Temperature Pulse Rate 78 106 H 78 Respiratory Rate Blood Pressure 139/81 Blood Pressure [Right] O2 Sat by Pulse 99 100 Oximetry 06/04/20 06/04/20 06/04/20 13:45 13:50 13:55 Temperature Pulse Rate 89 84 83 Respiratory Rate Blood Pressure Blood Pressure [Right] O2 Sat by Pulse 100 100 100 Oximetry 06/04/20 06/04/20 06/04/20 14:00 14:02 14:05 Temperature Pulse Rate 88 82 89 Respiratory Rate Blood Pressure 133/78 Blood Pressure [Right] O2 Sat by Pulse 100 100 Oximetry 06/04/20 06/04/20 06/04/20 14:10 14:15 14:20 Temperature Pulse Rate 93 H 86 90 Respiratory Rate Blood Pressure Blood Pressure [Right] O2 Sat by Pulse 100 100 100 Oximetry 06/04/20 06/04/20 06/04/20 14:25 14:30 14:32 Temperature Pulse Rate 90 88 113 H Respiratory Rate Blood Pressure 137/97 Blood Pressure [Right] O2 Sat by Pulse 100 100 Oximetry 06/04/20 06/04/20 06/04/20 14:35 14:40 14:45 Temperature Pulse Rate 89 89 102 H Respiratory Rate Blood Pressure Blood Pressure [Right] O2 Sat by Pulse 100 100 99 Oximetry 06/04/20 06/04/20 06/04/20 14:50 14:55 15:00 Temperature Pulse Rate 99 H 101 H 102 H Respiratory Rate Blood Pressure Blood Pressure [Right] O2 Sat by Pulse 100 100 100 Oximetry 06/04/20 06/04/20 06/04/20 15:02 15:05 15:10 Temperature Pulse Rate 88 97 H 100 H Respiratory Rate Blood Pressure 132/74 Blood Pressure [Right] O2 Sat by Pulse 100 100 Oximetry 06/04/20 06/04/20 06/04/20 15:15 15:20 15:25 Temperature Pulse Rate 96 H 95 H 89 Respiratory Rate Blood Pressure Blood Pressure [Right] O2 Sat by Pulse 99 100 100 Oximetry 06/04/20 06/04/20 06/04/20 15:30 15:32 15:35 Temperature Pulse Rate 86 89 104 H Respiratory Rate Blood Pressure 133/77 Blood Pressure [Right] O2 Sat by Pulse 100 99 Oximetry 06/04/20 06/04/20 06/04/20 15:40 15:45 15:50 Temperature Pulse Rate 87 79 99 H Respiratory Rate Blood Pressure Blood Pressure [Right] O2 Sat by Pulse 100 100 100 Oximetry 06/04/20 06/04/20 06/04/20 15:55 16:00 16:03 Temperature Pulse Rate 93 H 75 87 Respiratory Rate Blood Pressure 144/88 Blood Pressure [Right] O2 Sat by Pulse 100 100 Oximetry 06/04/20 06/04/20 06/04/20 16:05 16:10 16:15 Temperature Pulse Rate 94 H 96 H 101 H Respiratory Rate Blood Pressure Blood Pressure [Right] O2 Sat by Pulse 100 100 99 Oximetry 06/04/20 06/04/20 06/04/20 16:18 16:20 16:25 Temperature Pulse Rate 96 H 99 H 94 H Respiratory Rate Blood Pressure Blood Pressure [Right] O2 Sat by Pulse 88 100 100 Oximetry 06/04/20 06/04/20 06/04/20 16:30 16:32 16:35 Temperature Pulse Rate 83 77 106 H Respiratory Rate Blood Pressure 134/75 Blood Pressure [Right] O2 Sat by Pulse 100 100 Oximetry 06/04/20 06/04/20 06/04/20 16:40 16:45 16:50 Temperature Pulse Rate 106 H 83 82 Respiratory Rate Blood Pressure Blood Pressure [Right] O2 Sat by Pulse 99 100 99 Oximetry 06/04/20 06/04/20 06/04/20 16:55 17:00 17:05 Temperature Pulse Rate 91 H 112 H 97 H Respiratory Rate Blood Pressure Blood Pressure [Right] O2 Sat by Pulse 99 99 100 Oximetry 06/04/20 06/04/20 06/04/20 17:06 17:10 17:11 Temperature Pulse Rate 103 H 94 H 93 H Respiratory Rate Blood Pressure 136/84 138/71 Blood Pressure [Right] O2 Sat by Pulse 100 Oximetry 06/04/20 06/04/20 06/04/20 17:13 17:15 17:17 Temperature Pulse Rate 96 H 94 H 103 H Respiratory Rate Blood Pressure 141/79 157/84 132/73 Blood Pressure [Right] O2 Sat by Pulse 100 Oximetry 06/04/20 06/04/20 06/04/20 17:19 17:20 17:21 Temperature Pulse Rate 109 H 116 H 103 H Respiratory Rate Blood Pressure 145/71 148/86 Blood Pressure [Right] O2 Sat by Pulse 100 Oximetry 06/04/20 06/04/20 06/04/20 17:23 17:25 17:27 Temperature Pulse Rate 105 H 101 H 102 H Respiratory Rate Blood Pressure 135/84 130/79 127/84 Blood Pressure [Right] O2 Sat by Pulse 100 Oximetry 06/04/20 06/04/20 06/04/20 17:29 17:30 17:31 Temperature Pulse Rate 106 H 98 H 99 H Respiratory Rate Blood Pressure 126/74 113/66 Blood Pressure [Right] O2 Sat by Pulse 99 Oximetry 06/04/20 06/04/20 06/04/20 17:33 17:35 17:37 Temperature Pulse Rate 65 63 75 Respiratory Rate Blood Pressure 98/51 83/51 113/59 Blood Pressure [Right] O2 Sat by Pulse 100 Oximetry 06/04/20 06/04/20 06/04/20 17:39 17:40 17:41 Temperature Pulse Rate 81 75 78 Respiratory Rate Blood Pressure 110/65 119/65 Blood Pressure [Right] O2 Sat by Pulse 100 Oximetry 06/04/20 06/04/20 06/04/20 17:43 17:44 17:45 Temperature Pulse Rate 80 74 81 Respiratory Rate Blood Pressure 119/69 119/78 Blood Pressure [Right] O2 Sat by Pulse 100 Oximetry 06/04/20 06/04/20 06/04/20 17:47 17:50 17:55 Temperature Pulse Rate 76 81 81 Respiratory Rate Blood Pressure 124/69 Blood Pressure [Right] O2 Sat by Pulse 100 100 Oximetry 06/04/20 06/04/20 06/04/20 18:00 18:02 18:05 Temperature Pulse Rate 71 77 76 Respiratory Rate Blood Pressure 121/65 Blood Pressure [Right] O2 Sat by Pulse 100 100 Oximetry 06/04/20 06/04/20 06/04/20 18:10 18:15 18:18 Temperature Pulse Rate 74 71 83 Respiratory Rate Blood Pressure 125/65 Blood Pressure [Right] O2 Sat by Pulse 100 100 Oximetry 06/04/20 06/04/20 06/04/20 18:20 18:25 18:30 Temperature Pulse Rate 72 89 93 H Respiratory Rate Blood Pressure Blood Pressure [Right] O2 Sat by Pulse 100 100 100 Oximetry 06/04/20 06/04/20 06/04/20 18:33 18:35 18:40 Temperature Pulse Rate 97 H 91 H 89 Respiratory Rate Blood Pressure 128/71 Blood Pressure [Right] O2 Sat by Pulse 100 100 Oximetry 06/04/20 06/04/20 06/04/20 18:45 18:47 18:50 Temperature Pulse Rate 80 95 H 99 H Respiratory Rate Blood Pressure 132/77 Blood Pressure [Right] O2 Sat by Pulse 100 100 Oximetry 06/04/20 06/04/20 06/04/20 18:55 19:00 19:02 Temperature Pulse Rate 89 78 90 Respiratory Rate Blood Pressure 132/79 Blood Pressure [Right] O2 Sat by Pulse 100 100 Oximetry 06/04/20 06/04/20 06/04/20 19:05 19:10 19:15 Temperature Pulse Rate 90 90 92 H Respiratory Rate Blood Pressure Blood Pressure [Right] O2 Sat by Pulse 100 100 100 Oximetry 06/04/20 06/04/20 06/04/20 19:17 19:20 19:24 Temperature Pulse Rate 94 H 94 H 74 Respiratory Rate Blood Pressure 135/83 Blood Pressure [Right] O2 Sat by Pulse 100 92 Oximetry - Labs Labs: Abnormal Labs 05/31/20 06/02/20 06/03/20 16:36 22:52 10:34 MCH 27 L RDW 13.1 L Plt Count 105 L 102 L BUN 5 L Magnesium Alkaline Phosphatase 156 H Total Protein 6.0 L Albumin 3.0 L Urine WBC (Auto) 06/03/20 06/04/20 06/04/20 21:27 00:20 17:02 MCH RDW Plt Count 113 L BUN Magnesium 3.80 H Alkaline Phosphatase Total Protein Albumin Urine WBC (Auto) 45.0 H Laboratory Results - last 24 hr 06/03/20 06/03/20 06/04/20 21:27 21:27 00:20 Plt Count 113 L Uric Acid 5.8 Magnesium AST 16 ALT 13 Urine Color Yellow Urine Turbidity Slightly-cloudy Urine pH 6.0 Ur Specific [place] 1.009 Urine Protein <15 mg/dl Urine Glucose (UA) Neg Urine Ketones Neg Urine Blood Lg Urine Nitrite Neg Urine Bilirubin Neg Urine Urobilinogen 2.0 Ur Leukocyte Esterase Lg Urine WBC (Auto) 45.0 H Urine RBC (Auto) 7.0 U Epithel Cells (Auto) 5.0 Urine Bacteria (Auto) 1+ Urine Mucus Few 06/04/20 17:02 Plt Count Uric Acid Magnesium 3.80 H AST ALT Urine Color Urine Turbidity Urine pH Ur Specific [place] Urine Protein Urine Glucose (UA) Urine Ketones Urine Blood Urine Nitrite Urine Bilirubin Urine Urobilinogen Ur Leukocyte Esterase Urine WBC (Auto) Urine RBC (Auto) U Epithel Cells (Auto) Urine Bacteria (Auto) Urine Mucus
[2020-06-04] MEDS: fentaNYL-BUPIV 2 MCG/ML-0.125% 200 MCG/100 ML BAG EPIDURAL SCH (19:40)
[2020-06-05] MEDS: fentaNYL-BUPIV 2 MCG/ML-0.125% 200 MCG/100 ML BAG EPIDURAL SCH (03:06)
[2020-06-05] MEDS ORDERED: miSOPROStol 200 MCG TAB PR ONE (06:07)
[2020-06-05] MEDS ORDERED: miSOPROStol 200 MCG TAB ONE (06:08)
[2020-06-05] MEDS ORDERED: WITCH HAZEL/ GLYCERIN PAD TP PRN (06:31)
[2020-06-05] MEDS ORDERED: MAGNESIUM HYDROXIDE (MOM) ORAL LIQD UDC PO PRN (06:31)
[2020-06-05] MEDS ORDERED: diphenhydrAMINE 25 MG CAP PO PRN (06:31)
[2020-06-05] MEDS ORDERED: ACETAMINOPHEN 325 MG TAB PO PRN (06:31)
[2020-06-05] MEDS ORDERED: LANOLIN/ZINC/DIMETHICONE (LANSINOH) 7 GM TP PRN (06:31)
--- NOTE | 2020-06-05 07:12 | Procedure Note ---
OB Delivery Note - Delivery Date of Delivery: 06/05/20 Estimated blood loss: other (400 cc) - Vaginal Delivery presentation: vertex Delivery position: OA Intrapartum events: preeclampsia Delivery induction: cervidil Delivery monitor: external FHT, external uterine Route of delivery: Delivery placenta: spontaneous Delivery cord: 3 umbilical vessels Episiotomy: none Delivery laceration: none Delivery comments: Spontaneous vaginal delivery at 05:52 of liveborn female infant weighing 5 lb. 9.3 oz. over intact perineum with apgars of 6/8. Epidural anesthesia. Snug shoulders. 3 vessel cord double clamped and cut; baby taken to radiant warmer for suctioning and stimulation. Spontaneous cry and respirations. Cord blood obtained. Spontaneous delivery of intact placenta and membranes. EBL 400 cc. Pitocin to IV fluids after delivery of placenta. Cytotec 800 mcg for uterine atony. Fundus firm and midline. No lacerations noted. Vaginal sweep negative. Sponge count correct and instrument count correct. Mother and baby stable.
[2020-06-05] MEDS: IBUPROFEN 600 MG TAB PO SCH ×3 (08:19→19:33)
[2020-06-05 11:03] LABS: Basophils # (Auto) 0.1 K/mm3 (0.0-0.1); Basophils % (Auto) 0.6 % (0.0-1.8); Lymphocytes # (Auto) 1.9 K/mm3 (1.2-5.4); Lymphocytes % (Auto) 12.6 % (13.4-35.0); Mean Corpuscular HGB Conc 33 % (30-34); Mean Corpuscular Volume 82 fl (79-97); Monocytes # (Auto) 0.7 K/mm3 (0.0-0.8); Monocytes % (Auto) 4.5 % (0.0-7.3); Platelet Count 107 K/mm3 (140-440); Red Blood Count 4.01 M/mm3 (3.65-5.03); Red Cell Distribution Width 13.7 % (13.2-15.2)
--- NOTE | 2020-06-05 13:29 | Post Anesthesia Evaluation ---
- Post Anesthesia Evaluation Patient Participated: Yes Airway Patent: Yes Stable Respiratory Function: Yes Nausea/Vomiting: No Temp > 96.8F: Yes Pain Manageable: Yes Adequeate Hydration: Yes Anesthesia Complications: No Block Receding Appropriately: Yes Patient on Ventilator: No
[2020-06-05] MEDS ORDERED: LACTATED RINGERS 1,000 ML ONE (15:21)
[2020-06-05] MEDS ORDERED: cefTRIAXone/NS 1 GM/50 ML 1 GM/50 ML BAG IV SCH (18:00)
[2020-06-05 18:22] LABS: Hematocrit 32.5 % (30.3-42.9); Hemoglobin 10.7 gm/dl (10.1-14.3)
[2020-06-06] MEDS ORDERED: LACTATED RINGERS 1,000 ML ONE (02:14)
[2020-06-06] MEDS: IBUPROFEN 600 MG TAB PO SCH ×4 (02:20→23:51)
[2020-06-06] MEDS: MAGNESIUM SULFATE 40GM/1000ML 40 GM/1,000 ML BAG IV SCH (02:21)
--- NOTE | 2020-06-06 11:12 | Progress Note ---
Assessment and Plan A: PP Day #1 Preeclampsia P: Follow Routine Orders Monitor Blood Pressures Subjective - Subjective Date of service: 06/06/20 Principal diagnosis: at 38 weeks, PIH Patient reports: appetite normal, voiding normally, pain well controlled, flatus, bowel movement, ambulating normally, other (Denies HAs, visual changes, N&V, and heartburn) : doing well, bottle feeding Objective - Vital Signs Latest vital signs: Vital Signs Temp Pulse Resp BP BP Pulse Ox 06/06/20 08:28 98.4 F 73 19 119/75 100 06/06/20 07:22 81 126/80 06/06/20 05:22 77 145/81 06/06/20 04:22 106 H 130/60 06/06/20 03:22 101 H 121/61 06/06/20 02:22 78 147/82 06/06/20 02:17 88 136/92 06/06/20 01:22 85 195/105 06/06/20 00:22 92 H 118/72 06/05/20 23:22 68 140/80 06/05/20 22:22 78 120/65 06/05/20 21:22 69 116/54 06/05/20 20:22 97 H 157/86 06/05/20 19:30 98.2 F 17 06/05/20 19:22 79 133/74 06/05/20 19:00 99.7 F H 06/05/20 18:22 87 135/81 06/05/20 17:22 87 131/75 06/05/20 16:22 94 H 136/80 06/05/20 15:22 94 H 130/89 06/05/20 12:43 99 F 06/05/20 12:06 98 H 145/89 100 06/05/20 12:01 89 100 06/05/20 11:56 103 H 100 06/05/20 11:51 94 H 100 06/05/20 11:46 96 H 100 06/05/20 11:41 94 H 100 06/05/20 11:36 98 H 100 06/05/20 11:31 97 H 100 06/05/20 11:26 93 H 100 06/05/20 11:21 98 H 100 06/05/20 11:16 98 H 100 06/05/20 11:11 99 H 100 Intake and Output 06/05/20 06/06/20 06/06/20 22:59 06:59 14:59 Intake Total 3685.833 Output Total 1475 2500 Balance -1475 1185.833 Intake: IV 985.833 MAGNESIUM SULFATE 40GM/ 985.833 1000ML 40 gm In 1,000 ml @ 1 GM/HR 25 mls/hr IV DIRECT AMBER Rx#:[id number] Oral 1200 Other 1500 Output: Urine 1475 2500 Indwelling Catheter 1475 2500 Other: Intake, Other Source Saline Solution Total, Intake Amount 2700 Total, Output Amount 650 1500 - Exam Breasts: Present: normal Cardiovascular: Present: Regular rate Lungs: Present: Clear to auscultation, Normal air movement Abdomen: Present: normal appearance, soft, normal bowel sounds Uterus: Present: normal, firm, fundal height below umbilicus Extremities: Present: normal - Labs Labs: Abnormal lab results 06/05/20 06/05/20 06/05/20 Range/Units 10:15 15:45 22:59 Magnesium 4.40 H 4.20 H 3.80 H (1.7-2.3) mg/dL 06/06/20 Range/Units 04:29 Magnesium 3.70 H (1.7-2.3) mg/dL
[2020-06-07] MEDS: IBUPROFEN 600 MG TAB PO SCH (05:39)
--- NOTE | 2020-06-07 10:41 | Discharge Summary ---
Providers - Providers Date of Admission: 05/31/20 15:38 Date of discharge: 06/07/20 Attending physician: JOE STEWART JR, MD Primary care physician: ALEJANDRO WATSON Hospitalization Reason for admission: induction of labor Delivery: Episiotomy: none Laceration: none Other procedures: none complications: none Discharge diagnosis: IUP at term delivered, other (anemia) baby: female Hospital course: See admission H & P; OB delivery summary and PP progress notes Condition at discharge: Good Disposition: DC-01 TO HOME OR SELFCARE - Discharge Diagnoses (1) Teen Status: Acute (2) Status post normal vaginal delivery Status: Acute (3) Anemia Status: Acute Qualifiers: Anemia type: other cause Other causes of anemia: acute posthemorrhagic Qualified Code(s): D62 - Acute posthemorrhagic anemia Plan - Provider Discharge Summary Activity: routine, no sex for 6 weeks, no heavy lifting 4 weeks, no strenuous exercise Diet: other (Iron rich diet) Instructions: routine Additional instructions: [] Smoking cessation referral if applicable(refer to patient education folder for contact #) [] Refer to [facility]'s [facility] Booklet Call your doctor immediately for: * Fever > 100.5 * Heavy vaginal bleeding ( >1 pad per hour) * Severe persistent headache * Shortness of breath * Reddened, hot, painful area to leg or breast * Drainage or odor from incision. * Keep incision clean and dry at all times and follow doctor's instructions regarding bathing/showering - Follow up plan Follow up: ALEJANDRO WATSON MD [Primary Care Provider] - 6 Weeks
[2020-06-07 12:18] VITALS: BP 129/88
== END 2020-06-07 12:15 | disposition home or self-care (01) | DRG 775 ==
LOC: LD 15:38 → OB 06-06 08:04
PROVIDERS: ADMIT Obstetrics & Gynecology; ATTEND Obstetrics & Gynecology
PROC: 3E0P7VZ Introduction of Hormone into Female Reproductive, Via Natural or Artificial Opening (ICD-10-PCS; principal; 2020-06-05)
PROC: 10E0XZZ Delivery of Products of Conception, External Approach (ICD-10-PCS; 2020-06-05)
DX: O41.03X0 Oligohydramnios, third trimester, not applicable or unspecified (principal); Z3A.37 37 weeks gestation of pregnancy; Z37.0 Single live birth; Z83.3 Family history of diabetes mellitus; Z82.49 Family history of ischemic heart disease and other diseases of the circulatory system; O14.04 Mild to moderate pre-eclampsia, complicating childbirth; O13.4 Gestational [pregnancy-induced] hypertension without significant proteinuria, complicating childbirth; O90.81 Anemia of the puerperium; D62 Acute posthemorrhagic anemia; Z20.828 Contact with and (suspected) exposure to other viral communicable diseases
CPT/HCPCS: 36415; 59200; 76815; 76819; 80053; 81001; 83735; 84450; 84460; 84550; 85014; 85018; 85025; 85027; 85049; 86850; 86900; 86901; 87086; 88307; G0378; J0696; J2590; J3475; J3490; J7120; U0003-CS